=== PATIENT | female | born 1990 | race Caucasian/White ===

== ENCOUNTER 2023-09-26 11:24 | Emergency (ER) | payer OTHER ==
[~2023-09-26] VITALS: Ht 175.3 cm; Wt 108.9 kg
[2023-09-26 11:30] VITALS: BP 145/89
== END 2023-09-26 14:50 | disposition home or self-care (01) ==
LOC: ER 11:24
DX: M25.532 Pain in left wrist (principal); M25.562 Pain in left knee
CPT/HCPCS: 73110; 73562-LT; 96372; 99283-25; J1885